=== PATIENT | male | born 1980 | race Caucasian/White ===

== ENCOUNTER 2020-01-25 04:06 | Emergency (ER) | payer OTHER, SELFPAY ==
--- NOTE | ~2020-01-25 | CT_ITS ---
EXAMINATION: CT abdomen pelvis wo con DATE: 01/25/2020 04:57 INDICATION: Left flank pain. Nausea. TECHNIQUE: Computed tomography (CT) of the abdomen and pelvis was performed without intravenous contr ast. Automated exposure control and iterative reconstruction technique were employed. Exam dose: 221 .68 mGy-cm total exam DLP. COMPARISON: None. FINDINGS: The lung bases are clear. Normal heart size. No pericardial or pleural effusion. The liver, gallbladder, bile duct, spleen, pancreas, pancreatic duct and adrenal glands appear normal . There is an approximately 3 mm and another punctate nonobstructing right renal stone. There is a left ureterovesical 5 x 3 x 4 mm calculus with minimal left hydroureteronephrosis. No left kidney stone is noted. Normal caliber of the abdominal aorta. No intraperitoneal or retroperitoneal or pelvic mass lesion or adenopathy or ascites. The urinary bladder, prostate gland and seminal vesicles are unremarkable. Small sliding hiatal hernia. No bowel obstruction, bowel wall thickening, pneumatosis or intraperiton eal free air. Normal appendix. T12 limbus vertebra. Mild degenerative changes of the thoracolumbar spine.. IMPRESSION: 5 x 3 x 4 mm left ureterovesical junction calculus with minimal left hydroureteronephros is Mild right nephrolithiasis Small sliding hiatal hernia Reviewed, dictated and finalized at [facility] Reviewed, dictated and finalized at [facility] IMPRESSION: 5 x 3 x 4 mm left ureterovesical junction calculus with minimal le ft hydroureteronephrosis Mild right nephrolithiasis Small sliding hiatal hernia
[2020-01-25 04:10] VITALS: BP 137/76; PULSE 63; RESP 18; TEMP 36.1; O2SAT 99
--- NOTE | 2020-01-25 04:25 | ED.ABDPAIN ---
HPI - Abdominal Pain General Chief Complaint: Urogenital-Male Stated Complaint: flank pain Time Seen by Provider: 01/25/20 04:11 Source: RN notes reviewed History of Present Illness HPI narrative: Patient presents emergency department from home for left flank pain. Patient states pain woke him out of his sleep approximately 30 minutes ago. Pain is located left flank and does not radiate. Described as sharp and stabbing. Patient states he cannot find a comfortable position. States associated nausea. Denies any fevers or chills chest pain shortness of breath vomiting or any other symptoms states he took no previous pain medication at home Related Data Home Medications Medication Instructions Recorded Confirmed omeprazole 01/25/20 Allergies Allergy/AdvReac Type Severity Reaction Status Date / Time No Known Allergies Verified 01/25/20 04:25 Review of Systems Review of Systems: Narrative: Gen.: Denies fevers or chills ENT: Denies congestion Respiratory: Denies shortness of breath or cough CV: Denies chest pain or palpitations GI: Denies abdominal pain emesis or diarrhea reports flank pain and nausea Musculoskeletal: Denies back pain or muscle pain Neuro: Denies numbness, tingling, weakness or focal weakness Skin: Denies rash Except as documented, all other systems reviewed and negative PMFSH Past Medical History Medical History (Updated 01/25/20 @ 06:26 by Balwinder Augustin DO) Patient denies significant medical history Social History Social History (Updated 01/25/20 @ 04:26 by Balwinder Augustin DO) Tobacco type: e-cigarettes/vaping Alcohol intake: current Exam Narrative: Exam Narrative: APPEARANCE: No acute distress, nontoxic, resting in bed EYES: EOMI HEENT: Normocephalic, atraumatic, OMM RESPIRATORY: No respiratory distress Clear to auscultation bilaterally with no rhonchi wheezing or rales. CARDIOVASCULAR: Regular rate and rhythm without murmurs rubs or gallops. ABDOMINAL: Soft, nontender, nondistended, no rebound or guarding MUSCULOSKELETAl: Moves all extremities. No clubbing, cyanosis or edema. NEURO: Awake and alert. Following commands, speech normal, no focal deficits SKIN:: Warm, dry. No rashes lesions or abrasions PSYCHIATRIC: Normal affect/mood, left flank tenderness Course Course Emergency Course: Discussed with patient results of workup and diagnosis. Discussed need for follow-up with primary care, proper use of medication, and reasons to return to the emergency department. Patient understands and agrees to current treatment plan Vital Signs Vital signs: Vital Signs Temperature 96.9 F L 01/25/20 04:10 Pulse Rate 63 01/25/20 04:10 Respiratory Rate 18 01/25/20 04:10 Blood Pressure 137/76 01/25/20 04:10 Pulse Oximetry 99 01/25/20 04:10 Temperature 96.9 F L 01/25/20 04:10 Pulse Rate 75 01/25/20 06:06 Respiratory Rate 16 01/25/20 06:06 Blood Pressure 111/59 L 01/25/20 06:06 Pulse Oximetry 99 01/25/20 06:06 MDM - Abdominal Pain Lab Data Result diagrams: 01/25/20 04:23 01/25/20 04:43 Labs: Lab Results 01/25/20 01/25/20 01/25/20 Range/Units 04:23 04:26 04:43 WBC 10.5 H (4.5-10.0) K/mm3 RBC 5.49 (4.6-6.20) M/mm3 Hgb 17.5 (14.0-18.0) g/dL Hct 50.6 (42.0-52.0) % MCV 92.2 (80-100) fl MCH 31.9 (26-34) pg MCHC 34.6 (32-36) g/dl RDW 12.5 (11.5-14.5) % Plt Count 228 (150-375) k/mm3 MPV 9.0 (7.4-10.4) fl Immature Gran % (Auto) 0.6 H (0-0.5) % Neut % (Auto) 48.7 (45.5-73.1) % Lymph % (Auto) 37.7 (18.3-44.2) % [place] % (Auto) 8.8 H (2.6-8.5) % Eos % (Auto) 3.4 (0-4.4) % Baso % (Auto) 0.8 (0.2-1.2) % Lymph # (Auto) 3.94 H (0.9-3.2) K/mm3 [place] # (Auto) 0.9 H (0.1-0.6) K/mm3 Eos # (Auto) 0.4 H (0-0.3) K/mm3 Baso # (Auto) 0.1 (0.0-0.1) K/mm3 Abs Immat Gran (auto) 0.06 H (0.00-0.031) K/mm3 Absolute Neuts (auto) 5.1
[2020-01-25 04:29] LABS: Basophils Absolute Auto 0.1 K/mm3 (0.0-0.1); Basophils Percent Auto 0.8 % (0.2-1.2); Eosinophils Absolute Auto 0.4 K/mm3 (0-0.3); Eosinophils Percent Auto 3.4 % (0-4.4); Hematocrit 50.6 % (42.0-52.0); Hemoglobin 17.5 g/dL (14.0-18.0); Immature Granulocyte Absolute 0.06 K/mm3 (0.00-0.031); Immature Granulocyte Percent A 0.6 % (0-0.5); Lymphocytes Absolute Auto 3.94 K/mm3 (0.9-3.2); Lymphocytes Percent Auto 37.7 % (18.3-44.2); Mean Corpuscular HGB Conc 34.6 g/dl (32-36); Mean Corpuscular Hemoglobin 31.9 pg (26-34); Mean Corpuscular Volume 92.2 fl (80-100); Monocytes Absolute Auto 0.9 K/mm3 (0.1-0.6); Monocytes Percent Auto 8.8 % (2.6-8.5); Neutrophils Absolute Auto 5.1 K/mm3 (1.3-6.7); Neutrophils Percent Auto 48.7 % (45.5-73.1); Platelet Count Result 228 k/mm3 (150-375); Red Blood Count 5.49 M/mm3 (4.6-6.20); Red Cell Distribution Width 12.5 % (11.5-14.5); White Blood Count 10.5 K/mm3 (4.5-10.0)
[2020-01-25] MEDS: ONDANSETRON INJ 4 MG/2 ML VIAL IV PUSH (04:40)
[2020-01-25] MEDS: MORPHINE SULFATE 4 MG/ML INJ IV PUSH (04:40)
[2020-01-25 04:42] LABS: Add Urine Microscopic? YES; Appearance Urine Clear (Clear); Bilirubin Urine Negative (Negative); Blood Urine 3+ (Negative); Color Urine Yellow (Yellow); Glucose Urine UA Negative (Negative); Ketones Urine Negative (Negative); Leukocyte Esterase Ur Negative LEU/UL (Negative); Mucus Urine Few /lpf; Nitrate Urine Negative (Negative); Protein Urine Negative (Negative); RBC Urine >75 /hpf (0-2); Specific Grav Ur 1.024 (1.001-1.035); Urobilinogen Urine Negative mg/dL (<2.0); WBC Urine 0-3 /hpf
[2020-01-25] MEDS: SODIUM CHLORIDE 0.9% IV 1,000 ML 999 ML IV CONT (04:43)
[2020-01-25 05:00] LABS: Alanine Aminotransferase 64 U/L (4-50); Albumin Level 4.4 g/dL (3.5-5.1); Alkaline Phosphatase 75 U/L (38-126); Aspartate Amino Transferase 37 U/L (17-59); Bilirubin,Total 0.6 mg/dL (0.2-1.3); Blood Urea Nitrogen 15 mg/dL (9-20); Calcium 9.3 mg/dL (8.4-10.2); Carbon Dioxide 31 mmol/L (22-30); Chloride 102 mmol/L (98-107); Estimated Glomerular Filt Rate > 60; Glucose 114 mg/dL (75-110); Potassium 3.7 mmol/L (3.4-5.0); Sodium 139 mmol/L (137-145)
[2020-01-25] MEDS: KETOROLAC 30 MG/ML VIAL (*BKC) IV PUSH (05:45)
[2020-01-25] MEDS: TAMSULOSIN HCL 0.4 MG CAPSULE PO (06:05)
[2020-01-25 06:06] VITALS: BP 111/59; PULSE 75; RESP 16; O2SAT 99
== END 2020-01-25 06:36 | disposition home or self-care (01) ==
PROVIDERS: Emergency Provider Emergency Medicine; PCP Family Medicine
DX: N13.2 Hydronephrosis with renal and ureteral calculous obstruction (principal); F17.290 Nicotine dependence, other tobacco product, uncomplicated; K44.9 Diaphragmatic hernia without obstruction or gangrene
CPT/HCPCS: 36415; 74176; 80053; 81001; 85025; 96361; 96374; 96375; 99284; A9270; J1885; J2270; J2405; J7030

== ENCOUNTER 2021-10-02 16:27 | Outpatient (CLI) | payer OTHER, SELFPAY ==
--- NOTE | ~2021-10-02 | US_ITS ---
US scrotum doppler DATE: 10/02/2021 17:35 INDICATION: Right scrotal pain for one and a half days TECHNIQUE: Real-time and color flow imaging and Doppler analysis of the scrotal contents COMPARISON: None FINDINGS: Right testicle measures 4.5 x 2.1 x 2.8 cm. Left testicle measures 4.4 x 2 x 2.5 cm. There is a cyst in the head of the epididymis bilaterally, 4 mm on the right, 5 mm on the left. No testicular mass lesion or torsion. Small bilateral hydroceles. Mild left varicocele. IMPRESSION: No testicular mass lesion or torsion Small bilateral hydroceles Mild left varicocele Reviewed, dictated and finalized at [facility]. Reviewed, dictated and finalized at [facility] [employer]
== END 2021-10-02 16:28 | disposition home or self-care (01) ==
LOC: ANHIMG 16:30
PROVIDERS: PCP Family Medicine; Visit Provider Nurse Practitioner Family
DX: N50.811 Right testicular pain (principal); N43.3 Hydrocele, unspecified; I86.1 Scrotal varices
CPT/HCPCS: 76870; 93976

== ENCOUNTER 2024-11-21 00:57 | Day surgery (SDC) | payer OTHER, SELFPAY ==
[2024-11-09 15:21] VITALS: BMI 30.4
--- OUTSIDE RECORDS SUMMARY | 2024-11-21 01:00 | XMS_ITS | Data Portability ---
Author Organization [place] - [facility], Michele Kamara Address [address] [place] [address] Assessment Encounter Date Assessment Date Assessment LastModified by Organization Details LastModified Time 12/25/2023 12/25/2023 Patient tolerate d treatment well today. Treatment Plan: It is recommended that the patient receive career based intervention coordinator _2_ times per week for _4_ weeks receiving career based intervention coordinator, MH, STIM (with ice as needed) The patient will benefit from career based intervention coordinator and supporting therapies to conservatively manage pain and help facilitate a return to max functional capability. The patient's progress is dependent on patient compliance regarding home therapies and following the recommended treatment plan. Prognosis: good Home Care: ice for pain, gentle prone Kem and standing L/S extensions Patient Education Materials: Dept Intro Co-Treatment: TBD Imaging: TBD Contraindications : None Patient Treatment Preference: N/A Visit Count: 09/14 Not available 12/25/2023 11:31:03 12/29/2023 12/29/2023 Patient tolerate d treatment well today. Treatment Plan: It is recommended that the patient receive career based intervention coordinator _2_ times per week for _4_ weeks receiving career based intervention coordinator, MH, STIM (with ice as needed) The patient will benefit from career based intervention coordinator and supporting therapies to conservatively manage pain and help facilitate a return to max functional capability. The patient's progress is dependent on patient compliance regarding home therapies and following the recommended treatment plan. Prognosis: good Home Care: ice for pain, gentle prone Kem and standing L/S extensions Patient Education Materials: Dept Intro Co-Treatment: TBD Imaging: TBD Contraindications : None Patient Treatment Preference: N/A Visit Count: 2/8 [email or web address] Not available 12/28/2023 16:20:34 12/31/2023 12/31/2023 Patient tolerate d treatment well today. Treatment Plan: It is recommended that the patient receive career based intervention coordinator _2_ times per week for _4_ weeks receiving career based intervention coordinator, MH, STIM (with ice as needed) The patient will benefit from career based intervention coordinator and supporting therapies to conservatively manage pain and help facilitate a return to max functional capability. The patient's progress is dependent on patient compliance regarding home therapies and following the recommended treatment plan. Prognosis: good Home Care: ice for pain, gentle prone Kem and standing L/S extensions Patient Education Materials: Dept Intro Co-Treatment: TBD Imaging: TBD Contraindications : None Patient Treatment Preference: N/A Visit Count: 11/12 [email or web address] Not available 12/29/2023 17:45:33 01/05/2024 01/05/2024 Patient tolerate d treatment well today. Treatment Plan: It is recommended that the patient receive career based intervention coordinator _2_ times per week for _4_ weeks receiving career based intervention coordinator, MH, STIM (with ice as needed) The patient will benefit from career based intervention coordinator and supporting therapies to conservatively manage pain and help facilitate a return to max functional capability. The patient's progress is dependent on patient compliance regarding home therapies and following the recommended treatment plan. Prognosis: good Home Care: ice for pain, gentle prone Kem and standing L/S extensions Patient Education Materials: Dept Intro Co-Treatment: TBD Imaging: TBD Contraindications : None Patient Treatment Preference: N/A Visit Count: 12/13 Not available 01/04/2024 16:22:29 01/07/2024 01/07/2024 Patient tolerate d treatment well today. Treatment Plan: It is recommended that the patient receive career based intervention coordinator _2_ times per week for _4_ weeks receiving career based intervention coordinator, MH, STIM (with ice as needed) The patient will benefit from career based intervention coordinator and supporting therapies to conservatively manage pain and help facilitate a return to max functional capability. The patient's progress is dependent on patient compliance regarding home therapies and following the recommended treatment plan. Prognosis: good Home Care: ice for pain, gentle prone Kem and standing L/S extensions Patient Education Materials: Dept Intro Co-Treatment: TBD Imaging: TBD Contraindications : None Patient Treatment Preference: N/A Visit Count: 5/ cookie Not available 01/07/2024 09:14:42 Plan of Treatment Reminders Order Date Submit Date Provider Last Modified By Organization Details Last Modified Time Details Appointments None record ed. Lab None record ed. Referral None record ed. Procedures None record ed. Surgeries None record ed. Imaging None record ed. Medication Orders None record ed. Patient Targets Encounter Date Encounter Id Patient Goals Patient Target Last Modified By Organization Details Last Modified Time 12/25/2023 [id number] 1 month of Pain Not available Not available Not available Patient Instructions Encounter Date Encounter Id Patient Instructions Last Modified By Organization Details Last Modified Time 12/25/2023 [id number] Sit or lie in positions that are most comfortable and reduce your pain. Don t sit up in bed, and avoid soft couches and twisted positions. Bedrest can help relieve pain at first, but it delays healing. Avoid bedrest after the first day of back pain. Change positions every 30 minutes. If you must sit for long periods of time, take breaks from sitting. Get up and walk around, or lie in a comfortable position. Use a heating pad on a low or medium setting for 15 to 20 minutes every 2 or 3 hours. Try a warm shower in place of one session with the heating pad. You can also try an ice pack for 10 to 15 minutes every 2 to 3 hours. Put a thin cloth between the ice pack and your skin. Take Naproxen exactly as directed, up to 500 mg twice daily as need with food. Take short walks several times a day. You can start with 5 to 10 minutes, 2 or 3 times a day, and work up to longer walks. Walk on level surfaces and avoid hills and stairs until your back is better. Return to work and other activities as soon as you can. Continued rest without activity is usually not good for your back. To prevent future back pain, do exercises to stretch and strengthen your back and stomach. Learn how to use good posture, safe lifting techniques, and proper body mechanics. Not available 12/25/2023 09:30:34 Reason for Referral None Reported. Problems Name Problem SNOMED Code Status Onset Date Resolution Date Notes Provider Name and Address Organization Details Recorded Time Acute low back pain 914553559 Active 2023 Ralph Phelps DC [address], [place], [address], [place] [facility] 10:53:46 Low back pain 246108828 Active 2023 Ralph Phelps DC [address], [place], [address], [place] [facility] 10:53:47 Sacroiliac joint stiff 647794375 Active 2023 Ralph Phelps DC [address], [place], [address], [place] [facility] 11:25:13 Sacroiliac joint pain 859266949 Active 2023 Ralph Phelps DC [address], [place], [address], [place] [facility] 11:25:18 Thoracic segmental dysfunction 443457556 Active 2023 Ralph Phelps DC [address], [place], [address], [place] [facility] 11:25:24 Problem Notes None recorded. Procedures Surgical History Date Name Laterality Status Provider Name and Address Organization Details Recorded Time 01/19/20 31284: Hot or Cold Pack cancelled Ralph Phelps DC [address], [place], [address], [facility] 01/19/2024 09:31:18 01/19/20 24 81946: Mechanical Traction cancelled Ralph Phelps DC [address], [place], [address], [facility] 01/19/2024 09:31:26 01/19/20 24 28987: Chiropractic Manipulative Treatment (CMT) Spinal 3-4 regions cancelled Ralph Phelps DC [address], [place], [address], [facility] 01/19/2024 09:31:42 01/14/20 24 10531: Hot or Cold Pack cancelled Ralph Phelps DC [address], [place], [address], [facility] 01/14/2024 10:02:03 01/14/20 24 56449: Mechanical Traction cancelled Ralph Phelps DC [address], [place], [address], [place] [facility] 01/14/2024 10:02:08 01/14/20 24 93297: Chiropractic Manipulative Treatment (CMT) Spinal 3-4 regions cancelled Ralph Phelps DC [address], [place], [address], [place] [facility] 01/14/2024 10:02:18 01/12/20 24 38069: Hot or Cold Pack cancelled Ralph Phelps DC [address], [place], [address], [place] [facility] 01/11/2024 16:22:59 01/12/20 24 19815: Mechanical Traction cancelled Ralph Phelps DC [address], [place], [address], [place] [facility] 01/11/2024 16:22:53 01/12/20 24 56843: Chiropractic Manipulative Treatment (CMT) Spinal 3-4 regions cancelled Ralph Phelps DC [address], [place], [address], [place] [facility] 01/11/2024 16:23:12 01/07/20 24 04355: Hot or Cold Pack completed Ralph Phelps DC [address], [place], [address], [place] [facility] 01/07/2024 10:41:29 01/07/20 24 22567: Mechanical Traction completed Ralph Phelps DC [address], [place], [address], [place] [facility] 01/07/2024 10:45:57 01/07/20 24 63342: Chiropractic Manipulative Treatment (CMT) Spinal 3-4 regions completed Ralph Phelps DC [address], [place], [address], [place] [facility] 01/07/2024 10:41:41 01/05/20 24 04564: Hot or Cold Pack completed Ralph Phelps DC [address], [place], [address], [place] [facility] 01/04/2024 16:21:54 01/05/20 24 21460: Mechanical Traction completed Ralph Phelps DC [address], [place], [address], [place] [facility] 01/05/2024 10:38:51 01/05/20 00128: Chiropractic Manipulative Treatment (CMT) Spinal 3-4 regions completed Ralph Phelps DC [address], [place], [address], [place] [facility] 01/04/2024 16:22:13 12/31/19 24 59207: Hot or Cold Pack completed Ralph Phelps DC [address], [place], [address], [place] [facility] 12/31/2023 10:23:06 12/31/19 24 25164: Electrical Stimulation (unattended) completed Ralph Phelps DC [address], [place], [address], [facility] 12/31/2023 10:30:41 12/31/19 24 38240: Chiropractic Manipulative Treatment (CMT) Spinal 3-4 regions completed Ralph Phelps DC [address], [place], [address], [facility] 12/29/2023 17:45:26 12/29/19 24 10197: Hot or Cold Pack completed Ralph Phelps DC [address], [place], [address], [facility] 12/29/2023 11:48:54 12/29/19 24 30908: Electrical Stimulation (unattended) completed Ralph Phelps DC [address], [place], [address], [facility] 12/29/2023 11:49:02 12/29/19 24 07211: Chiropractic Manipulative Treatment (CMT) Spinal 3-4 regions completed Ralph Phelps DC [address], [place], [address], [facility] 12/28/2023 16:20:28 12/25/19 24 28935: Hot or Cold Pack completed Libby Nichols DC [address], [place], [address], [facility] 12/25/2023 11:21:00 12/25/19 24 20219: Electrical Stimulation (unattended) completed Libby Nichols [address] [address], [place], [address], [facility] 12/25/2023 11:30:03 12/25/19 24 03210: Chiropractic Manipulative Treatment (CMT) Spinal 3-4 regions completed Libby Nichols, [address] [address], [place], [address], [facility] 12/25/2023 09:30:33 12/24/19 24 34861: Hot or Cold Pack completed Ralph Phelps DC [address], [place], [address], [facility] 12/24/2023 11:22:22 12/24/19 24 24888: Electrical Stimulation (unattended) completed Ralph Phelps [address], [place], [address], [facility] 12/24/2023 11:22:52 12/24/19 24 83436: Chiropractic Manipulative Treatment (CMT) Spinal 3-4 regions completed Ralph Phelps [address], [place], [address], [facility] 12/24/2023 11:22:40 Imaging Results None recorded. Procedure Notes None recorded. Medical Equipment None Reported. Allergies Allergen ID Allergen Name Allergen Category Reaction Reaction Severity Criticality Documentation Date Start Date Code Code System Note Provider Name and Address Organization Details Recorded Time 842573 No Allergy Informati on Available Not available Not available Not available Not available 12/24/2023 77706 K Comme nt: React ion Class : Aller gy; Not Available [facility] 15:02:05 Medications Name Sig Start Date Stop Date Status Note LastModified by Organization Details LastModified Time azithromy john 250 mg tablet TAKE 2 TABLETS BY MOUTH TODAY, THEN TAKE 1 TABLET DAILY FOR 4 DAYS 12/23 completed Not Available Not Available Not Available dextroamp hetamine- amphetami ne 10 mg tablet TAKE 1 TABLET BY MOUTH DAILY active Not Available Not Available No t Available omeprazol e 40 mg capsule,d elayed release TAKE 1 CAPSULE BY MOUTH EVERY DAY active Not Available Not Available No t Available benzonata te 100 mg capsule TAKE 1 CAPSULE BY MOUTH THREE TIMES A DAY NEEDED FOR COUGH 12/23 completed Not Available Not Available Not Available COVID-19 vaccine, Ad26.COV2 .S (Maryann) (PF) 0.5 mL IM suspensio n (EUA) 12/06 completed DrugForm : susp Sto pType: Physicia n Stop Maximino gIdentif icationN umber: [id number] N extDoseD ate: 12/06/2020 8:04:00 AM Const antIndic ator: No activ e_status _dt_tm: 8:05:17 AM Not Available Not Available Not Available Vitals None Recorded Social History None recorded. Functional Status None recorded. Mental Status None recorded. Family History Nothing Reported. Medical History No medical history recorded. Immunizations Vaccine Type Date Status Note Provider Nam e and Address Organization Details Recorded Time SARS-COV-2 (COVID-19) vaccine, UNSPECIFIED completed Not Available [facility] 12/24/2023 15:29:31 Past Encounters Encounter ID Performer Location Encounter Start Date Encounter Closed Date Diagnosis/Indication Diagnosis SNOMED-CT Code Diagnosis ICD10 Code Diagnosis Note [id number] [facility]GA [address] [place] [address] 12/24/2023 10:17:42 12/24/2023 11:29:27 Low back pain 892350800 M54.50 LBP without radiating symptoms down legs but QL tension from SI into T/S, facet irritation of L/S and glute soreness. Will manage with chiropract ic through initial phase of care, referring for imaging if needed. Sacroiliac joint stiff 355143934 M25.60 LEFT Sacroiliac joint pain 20 1929924 M53.3 RIGHT Thoracic s egmental dysfunction 300372649 M99.02 Lower trap and rhomboid tension [id number] OLGA Aske[place] s [address] [place] [address] 12/25/2023 11:11:33 12/25/2023 11:31:41 Low back pain 295074539 M54.50 LBP without radiating symptoms down legs but QL tension from SI into T/S, facet irritation of L/S and glute soreness. Will manage with chiropract ic through initial phase of care, referring for imaging if needed. Sacroiliac joint stiff 394733689 M25.60 LEFT Sacroiliac joint pain 20 1192583 M53.3 RIGHT Thoracic s egmental dysfunction 664772635 M99.02 Lower trap and rhomboid tension [id number] Ralph Phelps DC [address] [address] 12/29/2023 11:21:12 12/29/2023 11:51:29 Low back pain 933285038 M54.50 LBP without radiating symptoms down legs but QL tension from SI into T/S, facet irritation of L/S and glute soreness. Will manage with chiropract ic through initial phase of care, referring for imaging if needed. Sacroiliac joint stiff 792290994 M25.60 LEFT Sacroiliac joint pain 20 0874410 M53.3 RIGHT Thoracic s egmental dysfunction 039312921 M99.02 Lower trap and rhomboid tension [id number] Ralph Phelps DC [place] [address] [place] [address] 12/31/2023 10:15:26 12/31/2023 10:33:55 Low back pain 356473562 M54.50 LBP without radiating symptoms down legs but QL tension from SI into T/S, facet irritation of L/S and glute soreness. Will manage with chiropract ic through initial phase of care, referring for imaging if needed. Sacroiliac joint stiff 532951261 M25.60 LEFT Sacroiliac joint pain 20 2384324 M53.3 RIGHT Thoracic s egmental dysfunction 600784520 M99.02 Lower trap and rhomboid tension [id number] Ralph Phelps DC [address] [address] 01/05/2024 10:22:51 01/05/2024 10:40:05 Low back pain 004083351 M54.50 LBP without radiating symptoms down legs but QL tension from SI into T/S, facet irritation of L/S and glute soreness. Will manage with chiropract ic through initial phase of care, referring for imaging if needed. Sacroiliac joint stiff 858631990 M25.60 LEFT Sacroiliac joint pain 20 1043239 M53.3 RIGHT Thoracic s egmental dysfunction 017303267 M99.02 Lower trap and rhomboid tension [id number] Ralph Phelps DC [place] [address] [place] [address] 01/07/2024 10:24:52 01/07/2024 10:55:26 Low back pain 043893433 M54.50 LBP without radiating symptoms down legs but QL tension from SI into T/S, facet irritation of L/S and glute soreness. Will manage with chiropract ic through initial phase of care, referring for imaging if needed. Sacroiliac joint stiff 151543823 M25.60 LEFT Sacroiliac joint pain 20 3488306 M53.3 RIGHT Thoracic s egmental dysfunction 913319351 M99.02 Lower trap and rhomboid tension Health Concerns Section Related Observation LastModified by Organization Detai ls LastModified Time None Recorded Concern Status LastModified by Organization Details LastModified Time None Recorded Advance Directives Directive None Recorded Payers Encounter Date Sequence Insurance Name Policy Number Policy Dougherty Covered Member ID Dougherty Member ID Guarantor Name 12/25/2023 1 [facility] [id number] Gustavo Pollock [id number] Gustavo Pollock 12/29/2023 1 [facility] [place] [id number] Gustavo Pollock [id number] Gustavo Pollock 12/31/2023 1 [facility] [place] [id number] Gustavo Pollock [id number] Gustavo Pollock 01/05/2024 1 [facility] [place] [id number] Gustavo Pollock [id number] Gustavo Pollock 01/07/2024 1 [facility] [place] [id number] Gustavo Pollock [id number] Gustavo Pollock Notes Date Note Type Note Provider Name and Address Organization Details Recorded Time 12/25/2023 text/html Back PainReporte d bypatient.Location :lumbar; pain is not radiating Quality:stiffness Severity:pain level 6/10 Duration:acute Onset/Timindays ago Context:atraumatic ; prior back problems Alleviating Factors:rest; relieved by ice; NSAIDS; chiropractor Aggravating Factors:movement/p ositioning; twisting Associated Symptoms:no fever; no weak limbs; no numbness of the legs/feet Patient presents decreased lower back pain SLV. He reports he felt good after his adjustment and during the evening. Today he work up stiff and sore. iLbby Nichols DC [address], [place], [address], [place] [facility] 12/25/2023 11:31:28 12/29/2023 text/html Patient states he's 70% better since initial visit. Pain has dramatically improved being replaced with soreness and stiffness. ADL's were not limited from this weekend to today's visit. Ralph Phelps DC [address], [place], [address], [facility] 12/29/2023 11:51:16 12/31/2023 text/html Patient continue s to make progress with his LBP that he states is 3/10 of discomfort . Pain has been drastically reduced since last week. Ralph Phelps DC [address], [place], [address], [place] [facility] 12/31/2023 10:33:45 01/05/2024 text/html Patient continue s to make progress as he felt fantastic over the weekend but woke up today with L/S stiffness. He attributes that to his new mattress but his symptoms are not a setback. Ralph Phelps DC [address], [place], [address], [place] [facility] 01/05/2024 10:39:38 01/07/2024 text/html Patient continue s to experience decreased LBP which only presents with extension, as he experiences more stiffness. He has reduced his normal weight training activities but his symptoms are not limiting his ADL's. Ralph Phelps DC [address], [place], [address], [facility] 01/07/2024 10:55:08
[2024-11-21 12:09] VITALS: BP 142/81; PULSE 70; RESP 18; TEMP 36.3; O2SAT 97
[2024-11-21] MEDS: LACTATED RINGERS 1,000 ML 150 ML IV CONT (12:18)
--- NOTE | 2024-11-21 12:45 | P.PNAN_ITS ---
Anes - Initial Pre Proc Eval Procedure: Operation Date: 11/21/24 13:30 Proposed Procedures p Screening Colonoscopy - Justin Telles MD Date/Time: 11/21/24 12:45 Surgeon: Justin Telles MD Pre Op Diagnosis: Screening colon Patient Data Age: 44 Gender: M Height: 1.73 m Weight: 88.2 kg Last Vital Signs Temp 36.3 C L 11/21/24 12:09 Pulse 70 11/21/24 12:09 Resp 18 11/21/24 12:09 BP 142/81 H 11/21/24 12:09 Pulse Ox 97 11/21/24 12:09 O2 Del Method Room Air 11/21/24 12:09 Allergies Allergy/AdvReac Type Severity Reaction Status Date / Time No Known Allergies Allergy Verified 11/21/24 12:07 Home Medications ?Medication ?Instructions ?Recorded ?Confirmed ?Type omeprazole 40 mg capsule,delayed See Rx Instructions .Route 09/20/24 11/21/24 Rx release .COMPLEX #90 caps dextroamphetamine-amphetamine 10 10 mg PO BID PRN ADD #45 tabs 10/24/24 11/21/24 Rx mg tablet (Adderall) Patient hx anesthesia problems: none Family hx anesthesia problems: none Results Review: All pre-operative results and documents have been reviewed as part of the pre- operative evaluation. [facility] Past Medical History Medical History GERD (gastroesophageal reflux disease) Screening for colon cancer BMI 30.0-30.9,adult BMI 32.0-32.9,adult Acute bronchitis due to other specified organisms Acute upper respiratory infection, unspecified Back pain with sciatica Bacterial conjunctivitis Dietary counseling and surveillance (11/26/15) Gastro-esophageal reflux disease without esophagitis Scratch willy Adult BMI 31.0-31.9 kg/sq m Patient denies significant medical history Family History Family History Father No problems noted. Mother COVID-19 Sibling COVID-19 Other Family history of malignant neoplasm Social History Social History Smoking status: Former smoker Tobacco type: pipe and e-cigarettes/vaping Second hand tobacco smoke exposure: No Smoking end date: 12/23/22 Alcohol intake: current Substance use: never Substance use type: does not use Do You Feel Safe in your Home?: Yes Lack of Transportation: No Lack of Food: Never True Current Housing: I Have Housing Concerned About Future Housing: No Difficulty Paying Gas/Electric Bills: No Difficulty Paying for Meds: No Currently Unemployed: No Education: High School Diploma/GED Difficulty w/ Childcare or Family Care: No Living arrangements: with family Occupation/Education: occupation 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 Gender identity (if verbalized by the patient): Male Anes - Eval Final PreProcedure Day of Procedure 11/21/24 12:45 Patient weight: overweight Heart: regular rate and rhythm Lungs: clear to auscultation Airway: Mallampati scale class II Neurological: alert and oriented Last oral intake: >/= 8 hours ASA classification: II Emergent: no Anesthetic plan: proceed Anesthesia type and monitoring: general GIVS and standard monitoring Results Review: All pre-operative results and documents have been reviewed as part of the pre- operative evaluation. Informed Consent: The patient's anesthetic plan and its attendant risks and benefits were discussed with the patient/family/POA. Questions were solicited and answers provided to the satisfaction of the patient/family/POA.
--- NOTE | 2024-11-21 13:18 | PM.HPGS ---
History of Present Illness History of Present Illness Consent: Risks, benefits, and alternatives have been discussed and questions answered. Patient agrees to proceed with procedure. Chief complaint: Screening colon Narrative: Gustavo Pollock is a 44 year old male here for screening colonoscopy Review of Systems Review of Systems: All systems reviewed & are unremarkable except as noted in HPI and below PMFSH Past Medical History Medical History GERD (gastroesophageal reflux disease) Screening for colon cancer BMI 30.0-30.9,adult BMI 32.0-32.9,adult Acute bronchitis due to other specified organisms Acute upper respiratory infection, unspecified Back pain with sciatica Bacterial conjunctivitis Dietary counseling and surveillance (11/26/15) Gastro-esophageal reflux disease without esophagitis Scratch willy Adult BMI 31.0-31.9 kg/sq m Patient denies significant medical history Family History Family History Father No problems noted. Mother COVID-19 Sibling COVID-19 Other Family history of malignant neoplasm Social History Social History Smoking status: Former smoker Tobacco type: pipe and e-cigarettes/vaping Second hand tobacco smoke exposure: No Smoking end date: 12/23/22 Alcohol intake: current Substance use: never Substance use type: does not use Do You Feel Safe in your Home?: Yes Lack of Transportation: No Lack of Food: Never True Current Housing: I Have Housing Concerned About Future Housing: No Difficulty Paying Gas/Electric Bills: No Difficulty Paying for Meds: No Currently Unemployed: No Education: High School Diploma/GED Difficulty w/ Childcare or Family Care: No Living arrangements: with family Occupation/Education: occupation 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 Gender identity (if verbalized by the patient): Male Meds Home Medications and Allergies Home Medications ?Medication ?Instructions ?Recorded ?Confirmed ?Type omeprazole 40 mg capsule,delayed See Rx Instructions .Route 09/20/24 11/21/24 Rx release .COMPLEX #90 caps dextroamphetamine-amphetamine 10 10 mg PO BID PRN ADD #45 tabs 10/24/24 11/21/24 Rx mg tablet (Adderall) Allergies Allergy/AdvReac Type Severity Reaction Status Date / Time No Known Allergies Allergy Verified 11/21/24 12:07 Vital Signs Vital Signs - 24 hr 11/21/24 12:09 Temperature 97.3 F L Pulse Rate 70 Respiratory Rate 18 Blood Pressure 142/81 H Pulse Oximetry 97 Oxygen Delivery Room Air Exam Const: General: comfortable and no acute distress HENMT: Face/Nose/Sinus: Normal nares present Eyes: General: appearance normal, both eyes and all related structures Neck: Neck: no JVD Resp: Auscultation: clear to auscultation bilaterally Cardio: Rate: regular rate Rhythm: regular rhythm GI: Inspection: non-distended GI Palp: Yes Soft to palpation Skin: General skin exam: normal color Neuro: General: gait normal Speech: normal speech Extrem: General: normal to inspection Psych: Mental Status: mental status grossly normal Assessment and Plan Assessment and plan (1) Screening for colon cancer: Code(s): Z12.11 - Encounter for screening for malignant neoplasm of colon Status: Acute Assessment and Plan: colonoscopy
[2024-11-21 13:36] VITALS: BP 100/62; PULSE 73; RESP 16; O2SAT 99
[2024-11-21 13:46] VITALS: BP 96/63; PULSE 66; RESP 14; O2SAT 99
[2024-11-21 13:56] VITALS: BP 120/58; PULSE 63; RESP 17; O2SAT 99
== END 2024-11-21 14:11 | disposition home or self-care (01) ==
PROVIDERS: PCP Family Medicine; Referring Provider Nurse Practitioner Adult Health; Visit Provider Internal Medicine Gastroenterology
PROC: 0DJD8ZZ Inspection of Lower Intestinal Tract, Via Natural or Artificial Opening Endoscopic (ICD-10-PCS; CPT 45378; principal; 2024-11-21 13:30)
DX: Z12.11 Encounter for screening for malignant neoplasm of colon (principal); K21.9 Gastro-esophageal reflux disease without esophagitis; Z87.891 Personal history of nicotine dependence; Z80.9 Family history of malignant neoplasm, unspecified
CPT/HCPCS: 45378; J2003; J2704; J7120